=== PATIENT | female | born 1995 | race Caucasian/White ===

== ENCOUNTER 2021-02-23 17:20 | Emergency (ER) | payer SELFPAY ==
[~2021-02-23] VITALS: Ht 165.1 cm; Wt 56.0 kg
[2021-02-23] MEDS ORDERED: PROV10 IM (17:32)
[2021-02-23] MEDS ORDERED: IBUP-2029 PO (17:32)
[2021-02-23] MEDS ORDERED: SODIUM CHLORIDE 0.9% 1,000 ML IV ONE (18:00)
[2021-02-23] MEDS ORDERED: EPINEPHRINE 1:1000 1 MG/ML AMP IM ONE (18:00)
[2021-02-23] MEDS ORDERED: DIPHENHYDRAMINE 50MG/ML VIAL IV ONE (18:00)
[2021-02-23] MEDS ORDERED: METHYLPREDNISOLONE SOD SUCC 125 MG/2 ML VIAL IV ONE (18:00)
[2021-02-23] MEDS ORDERED: FAMOTIDINE 20MG/2ML VIAL IV ONE (18:00)
[2021-02-23] MEDS ORDERED: ONDANSETRON HCL 4MG/2ML INJ IV ONE (19:00)
[2021-02-23 19:18] LABS: BASOPHILS % 0.1 % (0.0-2.0); EOSINOPHILS % 0.3 % (0.0-5.0); HEMATOCRIT. 44.1 % (36.0-48.0); HEMOGLOBIN. 14.4 g/dL (12.0-16.0); LYMPHOCYTES % 26.3 % (20.0-50.0); MEAN CORPUSCULAR HEMOGLOBIN 28.2 pg (28.0-32.0); MEAN CORPUSCULAR VOLUME 86.5 fL (81.0-99.0); MEAN PLATELET VOLUME 9.7 fl (7.4-10.4); MONOCYTES % 6.4 % (2.0-8.0); NEUTROPHILS % 66.9 % (40.0-76.0); PLATELET 241 x1000/uL (130-400); RED BLOOD CELL COUNT 5.09 mill/uL (4.2-5.4); RED CELL DISTRIBUTION WIDTH 14.2 % (11.6-14.6)
[2021-02-23 19:28] LABS: CHLORIDE 107 mEq/L (98-107)
[2021-02-23 19:36] LABS: HCG SCREEN NEGATIVE
[2021-02-23] MEDS ORDERED: EPIN0.3A3 IM (20:48)
[2021-02-23] MEDS ORDERED: P50 MT (20:48)
[2021-02-23] MEDS ORDERED: DIPH25CA83 MT (20:48)
[2021-02-23 22:33] VITALS: BP 108/52
== END 2021-02-23 22:33 | disposition home or self-care (01) ==
LOC: ER 17:20
DX: T78.3XXA Angioneurotic edema, initial encounter (principal); Y84.8 Other medical procedures as the cause of abnormal reaction of the patient, or of later complication, without mention of misadventure at the time of the procedure; Y92.9 Unspecified place or not applicable
CPT/HCPCS: 36415; 80053; 84703; 85025; 96361; 96372; 96374; 96375; 99284; J1200; J2405; J2930; J3490; J7030